=== PATIENT | male | born 1950 | race African-American/Black ===

== ENCOUNTER 2017-04-29 12:58 | Emergency (ER) | payer MEDICARE, MEDICAID ==
[2017-04-29] MEDS ORDERED: Ketorolac Tromethamine 30 MG/ML VIAL ONE (13:48)
--- NOTE | 2017-04-29 15:36 | RAD ---
TWO VIEWS THORACIC SPINE: Date: 04-29-17 History: Chronic back pain. Pain is getting worse. FINDINGS: Vertebral body height and intervertebral disc spaces appear to be within normal limits. Minimal scatt ered osteophytes are seen in the thoracic spine. No fracture or subluxation is visualized. Degenerati ve changes are seen in the lower cervical spine with osteophytes, intervertebral disc space narrowing as well as endplate degenerative changes. IMPRESSION: 1. Mild degenerative changes of the thoracic spine. 2. Chronic degenerative changes in the lower cervical spine. 3. No fracture or subluxation involving the thoracic spine. POS: [facility]
== END 2017-04-29 15:21 | disposition home or self-care (01) ==
LOC: ERS 12:58
DX: G89.29 Other chronic pain (principal); M54.6 Pain in thoracic spine; K21.9 Gastro-esophageal reflux disease without esophagitis; E11.9 Type 2 diabetes mellitus without complications; E78.5 Hyperlipidemia, unspecified; J45.909 Unspecified asthma, uncomplicated; F31.9 Bipolar disorder, unspecified; Z79.4 Long term (current) use of insulin; Z79.899 Other long term (current) drug therapy; Z79.891 Long term (current) use of opiate analgesic; Z79.82 Long term (current) use of aspirin
CPT/HCPCS: 72072; 96372; J1885

== ENCOUNTER 2019-01-20 20:17 | Inpatient (IN) | payer MEDICARE, MEDICAID ==
[2019-01-20 20:55] LABS: #Basophils 0.1 thou/uL (0.0-0.2); #Eosinphils 0.1 thou/uL (0.0-0.7); #Lymphocytes 2.6 thou/uL (1.20-3.40); #Monocytes 0.8 thou/uL (0.11-0.59); %Basophils 0.9 % (0.0-1.0); %Eosinophils 0.6 % (0.0-10.0); %Lymphocytes 30.8 % (21.0-51.0); %Monocytes 8.9 % (0.0-10.0); %Neutrophils 58.8 % (42.0-75.0); Hemoglobin 13.8 g/dL (14.0-18.0); Mean Corpuscular HGB CONC 32.8 g/dL (32.0-36.0); Mean Corpuscular Hemoglobin 33.5 pg (27.0-31.0); Mean Platelet Volume 7.5 fL (7.4-10.4); Platelet Count 211 thou/uL (130-400); RBC Distribution Width 12.2 % (11.5-14.5); White Blood Cell (WBC) Count 8.6 thou/uL (4.8-10.8)
[2019-01-20] MEDS ORDERED: Clindamycin/D5W 900 mg/50 ml Premix Bag ONE (20:58)
[2019-01-20] MEDS ORDERED: Dexamethasone 4 MG TAB ONE ×2 (21:01→21:02)
[2019-01-20 21:12] LABS: ALT (SGPT) 13 U/L (8-55); AST (SGOT) 13 U/L (5-34); Albumin 4.3 g/dL (3.4-4.8); Alkaline Phosphatase 96 U/L (40-150); Anion Gap 20 mmol/L (10-20); BUN (Urea Nitrogen) 74 mg/dL (8.4-25.7); Bilirubin, Total 0.6 mg/dL (0.2-1.2); Calc. Creatinine Clearance 0 mL/min (70-130); Calcium 9.2 mg/dL (7.8-10.44); Carbon Dioxide 22 mmol/L (23-31); Chloride 94 mmol/L (98-107); Estimated GFR-MDRD 13; Globulin 3.1 g/dL (2.4-3.5); Glucose 272 mg/dL (80-115); Protein, Total 7.4 g/dL (5.8-8.1); Sodium 132 mmol/L (136-145)
--- NOTE | 2019-01-20 21:37 | CT ---
CT BRAIN WITHOUT CONTRAST: 01/20/19 HISTORY: Facial drooping. FINDINGS: Comparison made with exam of 03/26/15. [place] holes in the right hemicranium are noted again. No evidence of acute infarct, hemorrhage, midlin e shift, or abnormal extra-axial fluid collections are seen. The ventricular size is normal and the b asilar cisterns patent. No acute calvarial abnormalities are seen. The visualized paranasal sinuses a nd mastoid air cells are well aerated. IMPRESSION: No CT evidence of acute intracranial process. POS: [facility]
[2019-01-20] MEDS ORDERED: Dextrose 5% in Water 1,000 ML IV PRN (22:59)
[2019-01-20] MEDS ORDERED: Dextrose 50% Abboject 50 ML SYRINGE SLOW IVP PRN (22:59)
[2019-01-20] MEDS ORDERED: Calcium Carbonate 500 MG ChewTAB PO PRN (23:02)
[2019-01-20] MEDS ORDERED: Ondansetron PF 4 MG/2 ML Vial IVP PRN (23:02)
[2019-01-20] MEDS ORDERED: Ondansetron ODT 4 MG TAB PO PRN (23:02)
[2019-01-20] MEDS ORDERED: hydrALAZINE 20 MG/ML VIAL SLOW IVP PRN (23:07)
[2019-01-21 00:39] VITALS: BMI 31.8
[2019-01-21] MEDS: Sodium Chloride 0.9% 1,000 ML IV SCH ×3 (00:54→20:28)
[2019-01-21 01:41] LABS: Bilirubin Negative (Negative); Blood, Urine Negative (Negative); Clarity Clear (Clear); Glucose, Urine (Dipstick) >=1000 mg/dL (Negative); Leukocyte 25 Leu/uL (Negative); Nitrite Negative (Negative); Protein, Urine (Dipstick) Negative (Neg-Trace); RBC/HPF None Seen HPF (0-3); Squamous Epithelial 0-3 HPF (0-3); Urobilinogen Normal mg/dL (Less than 2); Yeast-Budding 2+ HPF (None Seen)
[2019-01-21 01:46] LABS: Bacteria/HPF 1+ HPF (None Seen)
[2019-01-21] MEDS ORDERED: Insulin Regular 300 UNITS/3 ML VIAL SC PRN ×2 (02:30→18:32)
[2019-01-21 05:52] LABS: #Lymphocytes 0.8 thou/uL (1.20-3.40); #Monocytes 0.1 thou/uL (0.11-0.59); #Neutrophils 6.4 thou/uL (1.40-6.50); %Basophils 0.1 % (0.0-1.0); %Eosinophils 0.2 % (0.0-10.0); %Lymphocytes 10.4 % (21.0-51.0); %Monocytes 1.7 % (0.0-10.0); %Neutrophils 87.6 % (42.0-75.0); Mean Corpuscular HGB CONC 31.5 g/dL (32.0-36.0); Mean Corpuscular Hemoglobin 32.1 pg (27.0-31.0); Mean Platelet Volume 7.4 fL (7.4-10.4); Platelet Count 202 thou/uL (130-400); RBC Distribution Width 12.2 % (11.5-14.5); Red Blood Cell (RBC) Count 4.06 mill/uL (4.70-6.10); White Blood Cell (WBC) Count 7.4 thou/uL (4.8-10.8)
[2019-01-21] MEDS: Clindamycin/D5W 300 MG in Premix Bag 1 BAG IVPB SCH ×3 (05:52→20:29)
[2019-01-21] MEDS: Insulin Regular 300 UNITS/3 ML VIAL SC PRN ×3 (05:54→17:37)
[2019-01-21] MEDS ORDERED: Clindamycin/D5W 300 MG/50 ML BAG IVPB SCH (06:00)
[2019-01-21 06:12] LABS: Anion Gap 14 mmol/L (10-20); BUN (Urea Nitrogen) 71 mg/dL (8.4-25.7); Calc. Creatinine Clearance 23 mL/min (70-130); Carbon Dioxide 24 mmol/L (23-31); Chloride 103 mmol/L (98-107); Estimated GFR-MDRD 19; Glucose 238 mg/dL (80-115); Magnesium 2.5 mg/dL (1.6-2.6); Phosphorus 4.1 mg/dL (2.3-4.7); Potassium 5.1 mmol/L (3.5-5.1); Sodium 136 mmol/L (136-145); Uric Acid 7.1 mg/dL (3.5-7.2)
--- NOTE | 2019-01-21 07:10 | ULT ---
ULTRASOUND RETROPERITONEUM COMPLETE: (RENAL) 01/20/2019 HISTORY: A 68-year-old male with renal failure. FINDINGS: There is a 3 x 4 x 2.5 cm very hypoechoic mass-like structure, which has the appearance of a cyst on ultrasound, protruding exophytically slightly from the upper pole of the right kidney. There was a s imilar appearance on prior renal ultrasound of 03/07/2004. However, noncontrast CTs of 05/06/2004 an d 11/22/2016 demonstrate no such upper pole cyst. Instead, the CT demonstrates cortical defect in th e upper pole of the right kidney, and the cystic, mass-like structure mentioned above may just repres ent a preserved portion of upper pole renal parenchyma, surrounded by cortical defect from scar. The re continues to be mild dilation of the right renal pelvis and right renal collecting system, which w as also the case on the 11/22/2016 CT, the 05/06/2004 CT, and the 03/07/2004 ultrasound. There is no hydronephrosis of the left kidney. The right kidney measures 13 x 5 x 5.5 cm. The left kidney measures 6.5 x 3.5 x 4 cm. The right-sided ureteral jet is demonstrated in the urinary bladder. No left ureteral jet is visualized. The urinary bladder has normal wall thickness. Pre-void urinary bladder volume is 315 mL. Post-void urinary bladder volume is 60 mL. IMPRESSION: 1. Chronic mild right hydronephrosis. 2. Right renal upper pole parenchymal scar. 3. Atrophic, hypofunctioning left kidney. 4. Incomplete micturition. JAMES Byers POS: [facility]
[2019-01-21] MEDS: Saccharomyces boulardii 250 MG CAP PO SCH (08:55)
[2019-01-21] MEDS: Heparin 5,000 UNITS/ML VIAL SC SCH ×2 (08:55→20:31)
[2019-01-21] MEDS: Famotidine 20 MG TAB PO SCH (08:55)
[2019-01-21] MEDS: Senokot S 8.6-50 MG TAB PO SCH ×2 (08:55→20:31)
[2019-01-21] MEDS: Chlorhexidine Gluconate 15 ML UDCUP SSP SCH ×2 (08:55→20:31)
[2019-01-21] MEDS ORDERED: Prevnar 13-Val Conj/PF 0.5 ML SYRINGE IM ONE (09:00)
--- NOTE | 2019-01-21 10:58 | HP ---
PRIMARY BLOCKER AND POLISHER: Dr. Rad Brothers. CHIEF COMPLAINT: Generalized weakness with left-sided facial swelling. HISTORY OF PRESENT ILLNESS: The patient is a 68-year-old male with CKD, diabetes mellitus type 2, hypertension, and hyperlipidemia, presented to the emergency room with above complaints. History obtained from the patient and brother at the bedside who is the DPOA. The family noticed that the patient had swelling of his left side of his face that started earlier today. The family got concerned about stroke for which he was brought into the emergency room. The patient has been feeling generally weak and fatigued recently. He is compliant with all of his medications. He has baseline cognitive deficits. He denies any nausea, vomiting, abdominal pain, or urinary symptoms. No fever or chills reported. He denies any headache, double vision, blurring of vision, weakness, numbness of any of his extremities. In the emergency room, stroke was ruled out. He was diagnosed with left-sided facial cellulitis along with acute kidney injury. PAST MEDICAL HISTORY: 1. Diabetes mellitus type 2. 2. Hyperlipidemia. 3. Hypertension. 4. Down syndrome with some cognitive deficit. 5. Gout. PAST SURGICAL HISTORY: [place] hole placement for right-sided subdural hematoma evacuation in 2015. ALLERGIES: NO KNOWN DRUG ALLERGIES. CURRENT HOME MEDICATIONS: Family to provide accurate list of medication when they arrive, they are unable to provide accurate list of medications. SOCIAL HISTORY: The patient currently lives at home with his family. His brother is a DPOA. There is history of tobacco dependence. He drinks alcohol socially. FAMILY HISTORY: Negative for heart disease. REVIEW OF SYSTEMS: All other review of systems reviewed and were found negative. PHYSICAL EXAMINATION: VITAL SIGNS: Temperature 99, respirations 19, pulse rate of 99, blood pressure of 126/61, O2 saturation 96% on room air. GENERAL: A 68-year-old male, in no apparent distress. HEENT: Head is atraumatic and normocephalic. Sclerae anicteric. Moist mucous membranes. There is erythema along with approximately 5 mm diameter whitish lesion inside his mouth on the left. There is significant erythema and tenderness along with swelling. NECK: Supple. No JVD. No carotid bruit. LUNGS: Clear to auscultation bilaterally. No wheezing, rales, or rhonchi. HEART: S1 and S2 present. Regular rate and rhythm. No rubs or gallops appreciated. ABDOMEN: Soft and nontender. Bowel sounds present. EXTREMITIES: No edema or calf tenderness. NEUROLOGIC: Grossly nonfocal. Moves all 4 extremities. PSYCHIATRY: Alert, awake, and oriented x3. PERIPHERAL VASCULAR: Radial pulses are palpable bilaterally. MUSCULOSKELETAL: No joint swelling or tenderness. SKIN: Warm and dry. LYMPH NODES: No palpable lymph nodes in the neck. FINDINGS: CBC showed WBC 8.6 with hemoglobin 13.8, hematocrit 41.9, platelet count 211. Chemistry showed sodium 132, potassium 4, chloride 94, bicarb 22, BUN 74, creatinine 5.48, glucose of 272. CT scan of the brain, by my review, was negative for acute findings. EKG, by my review, showed sinus rhythm with left ventricular hypertrophy and left axis deviation. IMPRESSION: 1. Acute kidney injury on chronic kidney disease stage 3. 2. Left-sided facial cellulitis. 3. Hypertension. 4. Hyperlipidemia with statin allergy. 5. Metabolic acidosis, probably secondary to renal dysfunction. 6. Hyponatremia. 7. Macrocytic anemia. 8. History of Down syndrome with cognitive deficit. 9. Diabetes mellitus type 2. 10. Tobacco dependence. 11. Hypertensive heart disease. 12. Gout. PLAN: The patient will be monitored on the medical floor. We will continue IV fluids. We will get renal ultrasound. Check urinalysis. Nephrology consultation. Insulin sliding scale. Avoid nephrotoxic agent. We will confirm home medications Plan of care was discussed with the patient and the family in detail, they stated understanding. Job ID: [id number]
--- NOTE | 2019-01-21 10:59 | CON ---
DATE OF CONSULTATION: REASON FOR CONSULTATION: Elevated creatinine. HISTORY OF PRESENT ILLNESS: This is a very pleasant 68-year-old gentleman, who presented to the hospital for possible facial droop. The patient had a baseline creatinine of 1.2 in 2015, which has increased to 2.1 in 2017, and it was 5.4, and 3.7 today. The patient was hydrated on IV fluid with improvement in creatinine. The patient had renal imaging, which showed hydronephrosis. PAST MEDICAL HISTORY: Significant for GERD, hypertension, history of atrophic kidney, history of hyperlipidemia, pulmonary disease, asthma, seizures, history of head surgery after a blood clot, diabetes. SOCIAL HISTORY: No alcohol or drug use. FAMILY HISTORY: Negative for ESRD. ALLERGIES: REVIEWED. MEDICATIONS: Home medications list reviewed. Hospital medication list reviewed. REVIEW OF SYSTEMS: A 15-point review of systems was performed, negative except for positives noted above. GENERAL: HEAD: NECK: No swelling or lumps. NOSE: No epistaxis or discharge. EYES: No diplopia or pain. 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 NEUROPSYCHIATIC SYSTEMS: No suicidal ideation. No ideation. SKIN: Denies any rash or ulcer. CONSTITUTIONAL: No fever or chills. PHYSICAL EXAMINATION: GENERAL: The patient is awake and alert. VITAL SIGNS: Pulse 101, breathing 16, blood pressure 136/61. GENERAL APPEARANCE AND MENTAL STATUS: Fair. HEAD/NECK: Normocephalic. Atraumatic. EYES: EOMI. No deformity. EARS: Clear. No ulcers. NOSE: Intact. No lesions. MOUTH: Clear. No discharge. THROAT: Clear. No exudate. LUNGS: Clear. No crackles. CARDIAC: S1, S2. No rub. ABDOMEN: Benign. Bowel sounds positive. GENITALIA/RECTUM: [place] absent. BACK/EXTREMITIES: Edema 0+. NEUROLOGICAL: Alert and motor intact. SKIN: LYMPHATICS: LABORATORY DATA: Reviewed. ASSESSMENT AND PLAN: 1. Acute kidney injury with chronic kidney disease, multifactorial due to diabetes mellitus, hypertension, and possible atrophic kidney, with a history of hydronephrosis. We will consult Urology. 2. Hypertension, stable. 3. Anemia, stable. 4. Medication based on GFR, appropriate. No indication for dialysis. Continue gentle hydration. Job ID: [id number]
--- NOTE | 2019-01-21 16:11 | CON ---
DATE OF CONSULTATION: 01/21/2019 CONSULTING PHYSICIAN: Dr. Reddy. REASON FOR CONSULTATION: Hydronephrosis. HISTORY OF PRESENT ILLNESS: Mr. Olmos is a 68-year-old black male, who came to the emergency room yesterday secondary to concerns regarding a possible stroke. Stroke workup was negative, but the patient was found to be with an acute kidney injury with a creatinine of 5.48. Dr. Reddy of Nephrology was consulted and the patient does have a future appointment with Dr. Reddy on Wednesday. Dr. Reddy ordered a renal ultrasound per protocol for acute kidney injury, which demonstrated mild right-sided hydronephrosis and I was consulted for further assistance. On discussion with the patient, the patient states that he does not have any difficulty urinating. He denies any hematuria, has no history of kidney stones or previous urologic surgeries. He does have a longstanding history of chronic kidney disease and apparently has a prior history of this hydronephrosis per his brother. ALLERGIES: NONE. CURRENT HOME MEDICATIONS: 1. Insulin. 2. Trulicity. 3. Singulair. 4. Jardiance. 5. Protonix. 6. Zocor. 7. Lisinopril. 8. Zyloprim. PAST MEDICAL HISTORY: 1. Type 2 diabetes. 2. Hyperlipidemia. 3. Hypertension. 4. Mental retardation with cognitive deficits. 5. Gout. 6. Chronic kidney disease. PAST SURGICAL HISTORY: [place] hole placement for right-sided subdural hematoma evacuation in 2014. FAMILY HISTORY: Noncontributory. SOCIAL HISTORY: The patient lives at home with his family and his brother. His brother is his power of sports athletic trainer. He does previously had used tobacco, but apparently had quit. He drinks beer very frequently, sometimes several beers per day and does have problems with alcoholism. There is no history of illicit drug use. REVIEW OF SYSTEMS: A 12-point review of system was reviewed and otherwise negative other than what was commented on the HPI. The patient is not complaining of anything currently. PHYSICAL EXAMINATION: VITAL SIGNS: Temperature 97.6, pulse 93, respirations 18, blood pressure 112/72, saturation 96% on room air. GENERAL: No apparent distress. Minimally conversant, but does answer questions. States that he defers to his brother for most of his questions, appears older than stated age and somewhat disheveled. HEENT: Normocephalic, atraumatic. Pupils are symmetric and round. Sclerae are nonicteric. Moist mucous membranes. Extremely poor dentition. Trachea midline. CARDIOVASCULAR: Regular rate and rhythm. Normal S1, S2. Symmetric pulses. CHEST: No increased work of breathing. Symmetric expansion. LUNGS: Clear anteriorly. ABDOMEN: Soft, nontender, and nondistended. Positive bowel sounds. No organomegaly. No hernias. : Deferred at this time. EXTREMITIES: Positive clubbing and 2+ bilateral lower extremity edema. MUSCULOSKELETAL: No joint deformities, joint erythema noted. NEUROLOGIC: Cranial nerves 2 through 12 appear grossly intact. No focal motor or sensory deficits identified. PSYCHIATRIC: Alert and oriented x3. Appropriate mood and affect. SKIN: Warm and dry. Good turgor. No rashes or lesions. There is significant dry skin on the lower extremities. LABORATORY EVALUATION: The full set of labs are in the [facility] system, which I have reviewed. Of note, the patient's white count is 7.4 with a hemoglobin of 13, creatinine is 3.79, which is significantly improved from prior of 5.48. Remainder of electrolytes are within normal range. Renal ultrasound from January 20 demonstrates chronic mild right hydronephrosis with a right renal upper pole parenchymal scar, atrophic and hypofunction left kidney, and incomplete micturition. A right-sided ureteral jet was demonstrated in the urinary bladder. On further review, there is a CT from 2016, a CT from 2003, and an ultrasound from 2003, all of which demonstrate the same mild right hydronephrosis. ASSESSMENT AND PLAN: A 68-year-old black male with chronic right-sided hydronephrosis which has been evaluated CT on two separate occasions in 2016 and 2003 with ultrasound from 2003 demonstrating the exact same mild right-sided hydronephrosis and a solitary kidney. The patient's creatinine is improving and he does have a right-sided ureteral jet. As such, there is no evidence of high-grade obstruction and with improving creatinine, there is no evidence suggest that the to patient needs any kind of surgical intervention or further workup of his hydronephrosis. I would continue medical management of this alone as creatinine is a very valuable indicator with a solitary kidney of how that kidney is working. So long as the patient continues to have improvement, I would not suggest any further intervention. 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 I will sign off as there is nothing further that I would recommend doing on this individual. I have talked to the patient and counseled his family extensively about decreasing his alcohol intake and working on his blood sugar control and blood pressure control, which is the most likely to result in dialysis in the future. He does not need any further follow up with me unless any new urologic issues arise. Job ID: [id number]
--- NOTE | 2019-01-21 18:28 | PDOC.HOSPP ---
- Subjective Encounter Date: 01/21/19 Encounter Time: 11:00 Subjective: Pt seen for followup re: acute on chronic stage 3 kidney disease. Pt says he feels well. - Objective Vital Signs & Weight: Vital Signs (12 hours) Temp Pulse Resp BP Pulse Ox 01/21/19 08:00 96 01/21/19 07:55 97.6 F 93 18 112/72 96 Weight Admit Weight 191 lb Weight 191 lb 4.8 oz I&O: 01/20/19 01/21/19 01/22/19 06:59 06:59 06:59 Intake Total 494 Output Total 1350 Balance -856 Result Diagrams: 01/21/19 05:39 01/21/19 05:39 Additional Labs: Accuchecks 01/21/19 01/21/19 01/21/19 17:22 11:29 05:53 POC Glucose 235 H 404 H 188 H Labs and MARs reviewed by me ROS - Review of Systems Respiratory: reports: dry. denies: cough, shortness of breath, SOB with excertion, pleuritic pain, wheezing Cardiovascular: denies: chest pain, palpitations, orthopnea, paroxysmal noc. dyspnea, edema, light headedness Gastrointestinal: denies: nausea, vomitting, abdominal pain, diarrhea, constipation, melena, hematochezia Genitourinary: denies: dysuria, frequency, incontinence, hematuria, retention Skin: denies: rash, lesions, agustín, bruising - Medication Medications: Active Medications Generic Name Dose Route Start Last Admin Trade Name Freq PRN Reason Stop Dose Admin Chlorhexidine Gluconate 15 ml 01/21/19 09:00 01/21/19 08:55 Chlorhexidine Gluconate SSP 15 ml BID LOLA Administration Famotidine 20 mg 01/21/19 09:00 01/21/19 08:55 Pepcid PO 20 mg DAILY LOLA Administration Heparin Sodium (Porcine) 5,000 units 01/21/19 09:00 01/21/19 08:55 Heparin SC 5,000 units BID LOLA Administration Sodium Chloride 1,000 mls @ 100 mls/hr 01/20/19 23:15 01/21/19 12:01 Normal Saline 0.9% IV 1,000 mls .Q10H LOLA Administration Clindamycin Phosphate/Dextrose 50 mls @ 100 mls/hr 01/21/19 06:00 01/21/19 16 :14 300 mg/ Device IVPB 50 mls Q8HR LOLA Administration Insulin Human Regular 0 units 01/20/19 22:59 01/21/19 17:37 Humulin R SC 4 unit .MODERATE SLIDING SC PRN Administration Moderate Correctional Scale Saccharomyces Boulardii 250 mg 01/21/19 09:00 01/21/19 08:55 Florastor PO 250 mg DAILY LOLA Administration Senna/Docusate Sodium 1 tab 01/21/19 09:00 01/21/19 08:55 Senokot S PO 1 tab BID LOLA Administration - Exam General - other findings: Obese ENT: normocephalic atraumatic ENT - other findings: oral lesion Neck: supple, symmetric, no JVD, no thyromegaly Heart: RRR, no rubs Heart - other findings: S1, S2 Respiratory: CTAB, no wheezes, no rales, no ronchi Gastrointestinal: soft, non-tender, non-distended, normal bowel sounds Skin: normal turgor Psychiatric: normal affect, normal behavior Hosp A/P (1) Acute worsening of stage 3 chronic kidney disease Code(s): N18.3 - CHRONIC KIDNEY DISEASE, STAGE 3 (MODERATE) Status: Acute (2) Facial cellulitis Code(s): L03.211 - CELLULITIS OF FACE Status: Acute (3) DM2 (diabetes mellitus, type 2) Status: Chronic (4) Dyslipidemia Code(s): E78.5 - HYPERLIPIDEMIA, UNSPECIFIED Status: Chronic (5) Gout Code(s): M10.9 - GOUT, UNSPECIFIED Status: Chronic (6) HTN (hypertension) Code(s): I10 - ESSENTIAL (PRIMARY) HYPERTENSION Status: Chronic - Plan continue antibiotics, out of bed/ambulate continue clindamycin and Florastor. Creatinine improved to 3.79. Blood sugars high, switch to aggressive insulin sliding scale. Gout stable. Monitor vital signs and titrate antihypertensives as needed.
[2019-01-21] MEDS: Acetaminophen 325 MG TAB PO PRN (20:30)
[2019-01-22 05:49] LABS: Anion Gap 15 mmol/L (10-20); BUN (Urea Nitrogen) 64 mg/dL (8.4-25.7); Calc. Creatinine Clearance 34 mL/min (70-130); Carbon Dioxide 22 mmol/L (23-31); Chloride 109 mmol/L (98-107); Estimated GFR-MDRD 31; Glucose 181 mg/dL (80-115); Potassium 4.6 mmol/L (3.5-5.1); Sodium 141 mmol/L (136-145)
[2019-01-22] MEDS: Sodium Chloride 0.9% 1,000 ML IV SCH ×3 (05:49→21:13)
[2019-01-22] MEDS: Clindamycin/D5W 300 MG in Premix Bag 1 BAG IVPB SCH ×3 (05:50→21:14)
[2019-01-22] MEDS: Saccharomyces boulardii 250 MG CAP PO SCH (07:59)
[2019-01-22] MEDS: Heparin 5,000 UNITS/ML VIAL SC SCH ×2 (07:59→21:13)
[2019-01-22] MEDS: Famotidine 20 MG TAB PO SCH (07:59)
[2019-01-22] MEDS: Senokot S 8.6-50 MG TAB PO SCH ×2 (07:59→21:14)
[2019-01-22] MEDS: Chlorhexidine Gluconate 15 ML UDCUP SSP SCH ×2 (08:05→21:13)
[2019-01-22 12:29] LABS: #Basophils 0.1 thou/uL (0.0-0.2); #Monocytes 0.6 thou/uL (0.11-0.59); #Neutrophils 4.1 thou/uL (1.40-6.50); %Basophils 1.1 % (0.0-1.0); %Eosinophils 0.4 % (0.0-10.0); %Monocytes 7.3 % (0.0-10.0); %Neutrophils 53.2 % (42.0-75.0); Hemoglobin 12.4 g/dL (14.0-18.0); Mean Corpuscular HGB CONC 32.7 g/dL (32.0-36.0); Mean Corpuscular Hemoglobin 33.4 pg (27.0-31.0); Mean Platelet Volume 7.4 fL (7.4-10.4); Platelet Count 217 thou/uL (130-400); RBC Distribution Width 12.2 % (11.5-14.5); Red Blood Cell (RBC) Count 3.72 mill/uL (4.70-6.10); White Blood Cell (WBC) Count 7.8 thou/uL (4.8-10.8)
--- NOTE | 2019-01-22 13:12 | PRG ---
DATE OF SERVICE: 01/22/2019 SUBJECTIVE: A 68-year-old gentleman, being seen for acute kidney injury. The patient denied nausea, vomiting, or chest pain. OBJECTIVE: CONSTITUTIONAL: The patient is awake and alert. VITAL SIGNS: Pulse 83, breathing 16, blood pressure 159/76. GENERAL APPEARANCE AND MENTAL STATUS: Fair. HEAD/NECK: Normocephalic. Atraumatic. EYES: EOMI. No deformity. EARS: Clear. No ulcers. NOSE: Intact. No lesions. MOUTH: Clear. No discharge. THROAT: Clear. No exudate. LUNGS: Clear. No crackles. CARDIAC: S1, S2. No rub. ABDOMEN: Benign. Bowel sounds positive. GENITALIA/RECTUM: [place] absent. BACK/EXTREMITIES: Edema 0+. NEUROLOGICAL: Alert and motor intact. SKIN: LYMPHATICS: LABORATORY DATA: Hemoglobin 12.4. Creatinine 2.5. ASSESSMENT AND PLAN: 1. Acute kidney injury, improved. 2. Acute tubular necrosis, improved. 3. Chronic kidney disease, stage 3, stable. 4. Medication based on GFR appropriate. No indication for dialysis. Continue hydration. 5. Hydronephrosis. Management per Urology. Job ID: [id number]
--- NOTE | 2019-01-22 14:37 | PDOC.HOSPP ---
- Subjective Encounter Date: 01/22/19 Encounter Time: 08:20 Subjective: Pt seen for followup re: PAUL. Feels well, no complaints. - Objective Vital Signs & Weight: Vital Signs (12 hours) Temp Pulse Resp BP Pulse Ox 01/22/19 11:25 98.6 F 83 18 158/80 H 97 01/22/19 08:00 97 01/22/19 07:41 97.4 F L 83 17 149/76 H 97 Weight Admit Weight 191 lb Weight 191 lb 4.8 oz I&O: 01/21/19 01/22/19 01/23/19 06:59 06:59 06:59 Intake Total 494 1138 480 Output Total 1350 1300 Balance -856 -162 480 Result Diagrams: 01/22/19 12:21 01/22/19 05:05 Additional Labs: Accuchecks 01/22/19 01/22/19 01/21/19 12:12 05:26 19:55 POC Glucose 192 H 151 H 247 H 01/21/19 17:22 POC Glucose 235 H Labs and MARs reviewed by ROS - Review of Systems Cardiovascular: denies: chest pain, palpitations, orthopnea, paroxysmal noc. dyspnea, edema, light headedness Gastrointestinal: denies: nausea, vomitting, abdominal pain, diarrhea, constipation, melena, hematochezia - Medication Medications: Active Medications Generic Name Dose Route Start Last Admin Trade Name Freq PRN Reason Stop Dose Admin Acetaminophen 650 mg 01/20/19 23:02 01/21/19 20:30 Tylenol PO 650 mg Q4H PRN Administration Headache/Fever/Mild Pain (1-3) Chlorhexidine Gluconate 15 ml 01/21/19 09:00 01/22/19 08:05 Chlorhexidine Gluconate SSP 15 ml BID LOLA Administration Famotidine 20 mg 01/21/19 09:00 01/22/19 07:59 Pepcid PO 20 mg DAILY LOLA Administration Heparin Sodium (Porcine) 5,000 units 01/21/19 09:00 01/22/19 07:59 Heparin SC 5,000 units BID LOLA Administration Sodium Chloride 1,000 mls @ 100 mls/hr 01/20/19 23:15 01/22/19 05:49 Normal Saline 0.9% IV 1,000 mls .Q10H LOLA Administration Clindamycin Phosphate/Dextrose 50 mls @ 100 mls/hr 01/21/19 06:00 01/22/19 14 :17 300 mg/ Device IVPB 50 mls Q8HR LOLA Administration Insulin Human Regular 0 units 01/21/19 02:30 01/21/19 20:32 Humulin R SC 2 unit .BEDTIME SLIDING SC PRN Administration Bedtime Correctional Scale Saccharomyces Boulardii 250 mg 01/21/19 09:00 01/22/19 07:59 Florastor PO 250 mg DAILY OLLA Administration Senna/Docusate Sodium 1 tab 01/21/19 09:00 01/22/19 07:59 Senokot S PO 1 tab BID LOLA Administration - Exam NAD Eye: anicteric sclera ENT: normocephalic atraumatic Neck: supple Heart: RRR Respiratory: CTAB Gastrointestinal: soft Extremities: no cyanosis Skin: normal turgor Skin - other findings: L cheek lesion improving Psychiatric: normal affect, normal behavior Hosp A/P (1) Acute worsening of stage 3 chronic kidney disease Code(s): N18.3 - CHRONIC KIDNEY DISEASE, STAGE 3 (MODERATE) Status: Acute (2) Facial cellulitis Code(s): L03.211 - CELLULITIS OF FACE Status: Acute (3) DM2 (diabetes mellitus, type 2) Status: Chronic (4) Dyslipidemia Code(s): E78.5 - HYPERLIPIDEMIA, UNSPECIFIED Status: Chronic (5) Gout Code(s): M10.9 - GOUT, UNSPECIFIED Status: Chronic (6) HTN (hypertension) Code(s): I10 - ESSENTIAL (PRIMARY) HYPERTENSION Status: Chronic - Plan continue antibiotics, out of bed/ambulate Creatinine improved to 2.54 today. Will continue clindamycin and Florastor. Blood sugars high, start Jardiance. Gout stable. Monitor vital signs and titrate antihypertensives as needed. BP high, add amlodipine (continue to hold lisinopril).
[2019-01-22] MEDS ORDERED: Amlodipine 10 MG TAB PO SCH (14:45)
[2019-01-22] MEDS: Atorvastatin Calcium 20 MG TAB PO SCH (21:13)
[2019-01-22] MEDS: Acetaminophen 325 MG TAB PO PRN (21:13)
[2019-01-23 06:01] LABS: Band 1 % (5-11); Eosinophils 2 % (0-10); Lymphocytes 68 % (21-51); MDiff Complete? YES; Mean Corpuscular HGB CONC 32.4 g/dL (32.0-36.0); Mean Corpuscular Hemoglobin 33.5 pg (27.0-31.0); Mean Platelet Volume 7.5 fL (7.4-10.4); Monocytes 2 % (0-10); Neutrophil 27 % (42-75); Platelet Count 214 thou/uL (130-400); Red Blood Cell (RBC) Count 3.89 mill/uL (4.70-6.10); White Blood Cell (WBC) Count 6.7 thou/uL (4.8-10.8)
[2019-01-23] MEDS: Clindamycin/D5W 300 MG in Premix Bag 1 BAG IVPB SCH (06:04)
[2019-01-23] MEDS: Sodium Chloride 0.9% 1,000 ML IV SCH ×2 (06:04→21:21)
[2019-01-23] MEDS: Saccharomyces boulardii 250 MG CAP PO SCH (08:40)
[2019-01-23] MEDS: Montelukast Sodium 10 mg Tablet PO SCH (08:42)
[2019-01-23] MEDS: Amlodipine 5 MG TAB PO SCH (08:42)
[2019-01-23] MEDS: Famotidine 20 MG TAB PO SCH (08:42)
[2019-01-23] MEDS: Heparin 5,000 UNITS/ML VIAL SC SCH ×2 (08:42→20:16)
[2019-01-23] MEDS: Chlorhexidine Gluconate 15 ML UDCUP SSP SCH ×2 (08:42→20:16)
[2019-01-23] MEDS: Senokot S 8.6-50 MG TAB PO SCH ×2 (08:43→20:15)
[2019-01-23] MEDS ORDERED: Non-Formulary Item 1 EACH (Empagliflozin [Jardiance] 25 MG) PO SCH (09:00)
--- NOTE | 2019-01-23 11:13 | PRG ---
DATE OF SERVICE: 01/23/2019 SUBJECTIVE: Patient was seen and examined at bedside and overnight events noted. Patient denies any shortness of breath or chest pain or palpitation. No history of nausea or vomiting or diarrhea or fever or chills or cramps. OBJECTIVE: GENERAL: This is a well-built male, in no apparent distress. VITAL SIGNS: Temperature 98.6. Pulse 90. Respiratory rate 22. Blood pressure 120/71. HEENT: Atraumatic, normocephalic. Oral mucosa is moist NECK: Supple. CARDIOVASCULAR: S1, S2 heard. Rate and rhythm regular. RESPIRATORY: Clear to auscultation. GASTROINTESTINAL: Abdomen is soft. MUSCULOSKELETAL: No tenderness. No edema. DERMATOLOGIC: No skin rash. NEUROLOGIC: Alert and awake and oriented X3. No focal neurologic deficits. Moving all the extremities. PSYCHIATRIC: Mood and affect normal. LABORATORY DATA: Not done today. ASSESSMENT AND PLAN: 1. Acute kidney injury, improving. 2. Edema, controlled. 3. Hypertension. 4. Hydronephrosis. Follow with Urology. We will follow. Job ID: [id number]
[2019-01-23 12:27] LABS: Anion Gap 14 mmol/L (10-20); BUN (Urea Nitrogen) 32 mg/dL (8.4-25.7); Calc. Creatinine Clearance 55 mL/min (70-130); Calcium 8.8 mg/dL (7.8-10.44); Carbon Dioxide 15 mmol/L (23-31); Chloride 111 mmol/L (98-107); Estimated GFR-MDRD 53; Glucose 207 mg/dL (80-115); Potassium 4.7 mmol/L (3.5-5.1); Sodium 135 mmol/L (136-145)
--- NOTE | 2019-01-23 12:52 | PDOC.HOSPP ---
- Subjective Encounter Date: 01/23/19 Encounter Time: 08:40 Subjective: Pt seen for followup re: PAUL. Feels well, no complaints. - Objective Vital Signs & Weight: Vital Signs (12 hours) Temp Pulse Resp BP Pulse Ox 01/23/19 08:42 98 01/23/19 07:41 98.6 F 98 22 H 123/71 96 Weight Admit Weight 191 lb Weight 191 lb 4.8 oz I&O: 01/22/19 01/23/19 01/24/19 06:59 06:59 06:59 Intake Total 1138 1921 Output Total 1300 Balance -162 1921 Result Diagrams: 01/23/19 04:46 01/23/19 12:02 Additional Labs: Accuchecks 01/23/19 01/23/19 01/22/19 11:32 05:35 19:48 POC Glucose 509 H 145 H 164 H 01/22/19 17:01 POC Glucose 183 H labs and MARs reviewed by me ROS - Review of Systems Cardiovascular: denies: chest pain, palpitations, orthopnea, paroxysmal noc. dyspnea, edema, light headedness Gastrointestinal: denies: nausea, vomitting, abdominal pain, diarrhea, constipation, melena, hematochezia - Medication Medications: Active Medications Generic Name Dose Route Start Last Admin Trade Name Freq PRN Reason Stop Dose Admin Acetaminophen 650 mg 01/20/19 23:02 01/22/19 21:13 Tylenol PO 650 mg Q4H PRN Administration Headache/Fever/Mild Pain (1-3) Amlodipine Besylate 5 mg 01/23/19 09:00 01/23/19 08:42 Norvasc PO 5 mg DAILY LOLA Administration Atorvastatin Calcium 20 mg 01/22/19 21:00 01/22/19 21:13 Lipitor PO 20 mg HS LOLA Administration Chlorhexidine Gluconate 15 ml 01/21/19 09:00 01/23/19 08:42 Chlorhexidine Gluconate SSP 15 ml BID LOLA Administration Famotidine 20 mg 01/21/19 09:00 01/23/19 08:42 Pepcid PO 20 mg DAILY LOLA Administration Heparin Sodium (Porcine) 5,000 units 01/21/19 09:00 01/23/19 08:42 Heparin SC 5,000 units BID LOLA Administration Sodium Chloride 1,000 mls @ 100 mls/hr 01/20/19 23:15 01/23/19 06:04 Normal Saline 0.9% IV 1,000 mls .Q10H LOLA Administration Clindamycin Phosphate/Dextrose 50 mls @ 100 mls/hr 01/21/19 06:00 01/23/19 06 :04 300 mg/ Device IVPB 50 mls Q8HR LOLA Administration Insulin Human Regular 0 units 01/21/19 02:30 01/21/19 20:32 Humulin R SC 2 unit .BEDTIME SLIDING SC PRN Administration Bedtime Correctional Scale Montelukast Sodium 10 mg 01/23/19 09:00 01/23/19 08:42 Singulair PO 10 mg DAILY LOLA Administration Pantoprazole Sodium 40 mg 01/23/19 09:00 01/23/19 08:42 Protonix PO 40 mg DAILY LOLA Administration Saccharomyces Boulardii 250 mg 01/21/19 09:00 01/23/19 08:40 Florastor PO 250 mg DAILY LOLA Administration Senna/Docusate Sodium 1 tab 01/21/19 09:00 01/23/19 08:43 Senokot S PO 1 tab BID LOLA Administration - Exam NAD Eye: anicteric sclera Neck - other findings: oral lesion improved Heart: RRR Respiratory: CTAB Gastrointestinal: soft Extremities: no cyanosis Psychiatric: normal affect, normal behavior Hosp A/P (1) Acute worsening of stage 3 chronic kidney disease Code(s): N18.3 - CHRONIC KIDNEY DISEASE, STAGE 3 (MODERATE) Status: Acute (2) Facial cellulitis Code(s): L03.211 - CELLULITIS OF FACE Status: Acute (3) DM2 (diabetes mellitus, type 2) Status: Chronic (4) Dyslipidemia Code(s): E78.5 - HYPERLIPIDEMIA, UNSPECIFIED Status: Chronic (5) Gout Code(s): M10.9 - GOUT, UNSPECIFIED Status: Chronic (6) HTN (hypertension) Code(s): I10 - ESSENTIAL (PRIMARY) HYPERTENSION Status: Chronic - Plan continue antibiotics, PT/OT, out of bed/ambulate Creatinine improved to 1.58 today. Switch clindamycin to PO. Gout stable. Monitor vital signs and titrate antihypertensives as needed. BP controlled.
[2019-01-23] MEDS: Clindamycin 150 MG CAP PO SCH ×2 (13:44→21:20)
[2019-01-23] MEDS: Atorvastatin Calcium 20 MG TAB PO SCH (20:15)
[2019-01-24] MEDS: Clindamycin 150 MG CAP PO SCH (05:31)
[2019-01-24] MEDS: Sodium Chloride 0.9% 1,000 ML IV SCH (05:33)
[2019-01-24 07:17] LABS: #Basophils 0.1 thou/uL (0.0-0.2); #Eosinphils 0.1 thou/uL (0.0-0.7); #Lymphocytes 2.4 thou/uL (1.20-3.40); #Monocytes 0.4 thou/uL (0.11-0.59); #Neutrophils 2.4 thou/uL (1.40-6.50); %Basophils 1.4 % (0.0-1.0); %Eosinophils 2.1 % (0.0-10.0); %Lymphocytes 44.3 % (21.0-51.0); %Monocytes 7.9 % (0.0-10.0); %Neutrophils 44.3 % (42.0-75.0); Hemoglobin 13.1 g/dL (14.0-18.0); Mean Corpuscular HGB CONC 32.6 g/dL (32.0-36.0); Mean Corpuscular Hemoglobin 33.2 pg (27.0-31.0); Platelet Count 243 thou/uL (130-400); Red Blood Cell (RBC) Count 3.95 mill/uL (4.70-6.10); White Blood Cell (WBC) Count 5.4 thou/uL (4.8-10.8)
[2019-01-24 07:40] LABS: Anion Gap 13 mmol/L (10-20); BUN (Urea Nitrogen) 23 mg/dL (8.4-25.7); Calc. Creatinine Clearance 65 mL/min (70-130); Calcium 9.2 mg/dL (7.8-10.44); Carbon Dioxide 21 mmol/L (23-31); Chloride 111 mmol/L (98-107); Estimated GFR-MDRD 64; Glucose 165 mg/dL (80-115); Sodium 140 mmol/L (136-145)
[2019-01-24 07:52] VITALS: BP 111/65; TEMP 98.8
[2019-01-24] MEDS: Montelukast Sodium 10 mg Tablet PO SCH (09:05)
[2019-01-24] MEDS: Chlorhexidine Gluconate 15 ML UDCUP SSP SCH (09:05)
[2019-01-24] MEDS: Senokot S 8.6-50 MG TAB PO SCH (09:05)
[2019-01-24] MEDS: Saccharomyces boulardii 250 MG CAP PO SCH (09:05)
[2019-01-24] MEDS: Amlodipine 5 MG TAB PO SCH (09:05)
[2019-01-24] MEDS: Famotidine 20 MG TAB PO SCH (09:05)
[2019-01-24] MEDS: Heparin 5,000 UNITS/ML VIAL SC SCH (09:05)
--- NOTE | 2019-01-24 15:11 | DIS ---
DATE OF ADMISSION: 01/21/2019 DATE OF DISCHARGE: 01/24/2019 PRIMARY CARE PROVIDER: Dr. Rad Brothers. DISCHARGE DIAGNOSES: 1. [id number] stage 3 kidney disease. 2. Soft tissue infection of buccal mucosa. 3. Chronic right-sided hydronephrosis. CONSULTATIONS DURING THIS HOSPITALIZATION: 1. Nephrology, Dr. Reddy. 2. Urology, Dr. Duarte. CONDITION OF PATIENT ON THE DAY OF DISCHARGE: Stable. I assessed Mr. Olmos on the day of discharge. He denies any chest pain or shortness of breath. Vital signs are stable. S1 and S2 are heard, regular. Lungs are clear to auscultation bilaterally. FOLLOWUP APPOINTMENTS: He has appointment with Nephrology Service on January 25, 2019. He is advised to follow up with his primary care provider in 3 to 5 days' time. DISCHARGE MEDICATIONS: 1. Allopurinol 300 mg daily. 2. Trulicity 0.75 mg subcutaneously every week. 3. Jardiance 25 mg daily. 4. Tresiba 40 units subcutaneously daily. 5. Montelukast 10 mg daily. 6. Protonix 40 mg daily. 7. Zocor 40 mg at bedtime. 8. Amlodipine 5 mg daily. 9. Clindamycin 300 mg 3 times a day for 5 days. 10. Florastor 250 mg daily for 5 days. HOSPITAL COURSE: Mr. Olmos is a pleasant 68-year-old gentleman, who was admitted to [facility] on January 20, 2019, for [id number] stage 3 kidney disease as well as infection of the buccal mucosa. He improved with intravenous fluids and antibiotics. He was seen by Urology and Nephrology Services. They did not feel that the patient needed any surgical intervention or further workup of his hydronephrosis since his creatinine was improving and he has a right-sided ureter checked. The patient's lisinopril is on hold at the time of discharge. He is advised to resume it in 1 week's time. On the day of discharge, he has white count 5400, hemoglobin 13.1, platelet count 243,000. Sodium 140, potassium 5.0, blood urea nitrogen 23, and creatinine 1.34. Many thanks for allowing me to participate in your patient's care. Please feel free to contact me with any questions or concerns. DISCHARGE DESTINATION: Home. TIME SPENT: Total amount of time spent coordinating this discharge: 32 minutes. Job ID: [id number]
--- NOTE | 2019-01-24 15:19 | PRG ---
DATE OF SERVICE: 01/24/2019 SUBJECTIVE: Patient was seen and examined at bedside and overnight events noted. Patient denies any shortness of breath or chest pain or palpitation. No history of nausea or vomiting or diarrhea or fever or chills or cramps. OBJECTIVE: GENERAL: This is a well-built male, in no apparent distress. VITAL SIGNS: Temperature . Heart rate 110. Respiratory rate 18. Blood pressure 111/65. HEENT: Atraumatic, normocephalic. Oral mucosa is moist NECK: Supple. CARDIOVASCULAR: S1, S2 heard. Rate and rhythm regular. RESPIRATORY: Clear to auscultation. GASTROINTESTINAL: Abdomen is soft. MUSCULOSKELETAL: No tenderness. No edema. DERMATOLOGIC: No skin rash. NEUROLOGIC: Alert and awake and oriented X3. No focal neurologic deficits. Moving all the extremities. PSYCHIATRIC: Mood and affect normal. LABORATORY DATA: Potassium is 5.0, BUN is 23, and creatinine is 1.3. ASSESSMENT AND PLAN: 1. Acute kidney injury, much better. Renal function is back to normal. 2. Edema, controlled. 3. Hypertension, stable. 4. Hydronephrosis. Follow with Urology. 5. Renal function is stable. Follow with Dr. Reddy in 1 week. Hold lisinopril for a week till Dr. Reddy sees. Job ID: [id number]
== END 2019-01-24 13:29 | disposition home or self-care (01) | DRG 683 ==
LOC: ERS 20:17 → T4-A 01-21 00:33
PROVIDERS: ADMIT Internal Medicine; ATTEND Internal Medicine
DX: N17.9 Acute kidney failure, unspecified (principal); L03.211 Cellulitis of face; E87.2 Acidosis; E87.1 Hypo-osmolality and hyponatremia; E11.22 Type 2 diabetes mellitus with diabetic chronic kidney disease; E78.5 Hyperlipidemia, unspecified; Q90.9 Down syndrome, unspecified; M10.9 Gout, unspecified; N18.3 Chronic kidney disease, stage 3 (moderate); D53.9 Nutritional anemia, unspecified; I13.10 Hypertensive heart and chronic kidney disease without heart failure, with stage 1 through stage 4 chronic kidney disease, or unspecified chronic kidney disease; R40.2362 Coma scale, best motor response, obeys commands, at arrival to emergency department; R40.2142 Coma scale, eyes open, spontaneous, at arrival to emergency department; R40.2252 Coma scale, best verbal response, oriented, at arrival to emergency department; K21.9 Gastro-esophageal reflux disease without esophagitis; F17.210 Nicotine dependence, cigarettes, uncomplicated; E11.65 Type 2 diabetes mellitus with hyperglycemia; D63.1 Anemia in chronic kidney disease; N13.30 Unspecified hydronephrosis; B99.8 Other infectious disease; Z79.899 Other long term (current) drug therapy; Z79.4 Long term (current) use of insulin; Z79.82 Long term (current) use of aspirin
CPT/HCPCS: 36415; 36416; 70450; 76770; 80048; 80053; 81001; 82570; 83735; 84100; 84484; 84550; 85025; 90471; 90670; 93005; 96361; 96365; G0009; J1644; J1815; J3490; J8540